=== PATIENT | male | born 1975 | race Caucasian/White ===

== ENCOUNTER → 2018-10-09 06:33 | Day surgery (SDC) | payer BC ==
[~2018-10-09 06:33] MED LIST: Acetaminophen TAB* 325 MG PO PRN; Buffered Lidocaine 0.9% SYRIN* 5 ML/SYR SYRINGE INTRADERM ONE; Bupivacaine 0.25% SDV PF* 10 ML VIAL INJ ONE; Dexamethasone IV* 4 MG/ML 1 ML (4 MG) ONE; DiMENhydriNATE IV* 50 MG/ML VIAL IV PUSH PRN; DiMENhydriNATE IV* 50 MG/ML VIAL ONE; Famotidine IV* 10 MG/ML 2 ML (20 mg) IV ONE; Famotidine IV* 10 MG/ML 2 ML (20 mg) ONE; HYDROmorphone INJ1* 1 MG/ML SYRINGE IV PRN; Ketorolac INJ* 30 MG/ML 1 ML VIAL ONE; Lidocain 1% EPI 1:100,000 * 30 ML MDV ONE; Midazolam* 1 MG/ML 5 ML VIAL (5 MG) ONE; Naloxone* 0.4 MG/ML 1 ML VIAL IV PRN; Ondansetron INJ* 2 MG/ML VIAL ONE; Propofol* 10 MG/ML 20 ML BTL ONE; ceFAZolin 2 GM PREMIX in ORs 2 GM/50 ML BAG IVPB ONE; fentaNYL* 50 MCG/ML 2 ML VIAL (100 MCG VIAL) ONE; oxyCODONE TAB* 5 MG TAB ONE
[2018-10-09] MEDS: oxyCODONE TAB* 5 MG TAB PO PRN ×2 (12:40→13:24)
[2018-10-09 13:47] VITALS: BP 130/77
--- NOTE | 2018-10-10 13:12 | OP ---
DATE OF OPERATION: 10/09/18 - SDS DATE OF : 71 SURGEON: Chele Seymour MD. SOFTWARE DEVELOPMENT COORDINATOR: LEXA Peralta. ANESTHESIOLOGIST: Dr. Baez. ANESTHESIA: General. PRE-OP DIAGNOSES: 1. Right wrist triangular fibrocartilage complex tear of the deep foveal fibers. 2. Right wrist ulnar styloid impaction syndrome. 3. Degeneration of proximal pole, right hamate. 4. Right dorsal ulnar sensory nerve neuritis. POST-OP DIAGNOSES: 1. Right wrist triangular fibrocartilage complex tear of the deep foveal fibers. 2. Right wrist ulnar styloid impaction syndrome. 3. Degeneration of proximal pole, right hamate. 4. Right dorsal ulnar sensory nerve neuritis. OPERATIVE PROCEDURES: 1. Right wrist arthroscopic triangular fibrocartilage complex tear debridement. 2. Right open triangular fibrocartilage complex repair. 3. Partial excision of right ulnar styloid. 4. Excision of the proximal pole of the right hamate. 5. Right dorsal ulnar sensory nerve neurolysis. ESTIMATED BLOOD LOSS: 2 mL. COMPLICATIONS: None. INDICATIONS: Nguyễn is 43 years old. He has had progressive right ulnar side wrist pain for years. He has been treated nonoperatively. This has been insufficient. We had talked about risks and benefits. He had wanted to proceed with surgery. I had reviewed his MRI together with Nguyễn. I told him that he had degeneration at the distal of his ulnar styloid and some tearing of the fovea fibers of the TFCC, as well as some tearing at the insertion of the ulnar collateral ligament on the ulnar aspect of the triquetrum probably due to the ulnar styloid impaction syndrome. Additionally, on the MRI, there was lot of degeneration of the proximal pole of hamate with cystic changes and lot of edema there. He was very tender on exam, so I told him, I could excise the proximal pole of the hamate as well. He understands the risks and benefits and he wanted to proceed. FINDINGS: See above and below. DESCRIPTION OF PROCEDURE: Nguyễn was seen in the preoperative holding area. The correct site, side, and procedure were identified. We came back to the operating room where the arm was prepped and draped in the usual fashion. A time-out was performed. The arm was placed in the Accumed traction tower and inline traction was applied. The arm was exsanguinated with the Esmarch and the tourniquet was inflated to 250 mmHg. A 3-4 portal was created in a standard fashion with the 11 blade followed by the mosquito followed by the blunt trocar. A camera was then introduced into the 3-4 portal. I then examined the radial-sided structures , everything looked good. I came ulnar and there was a lot of dorsal and volar synovitis. There was a little bit fraying of the TFCC. This was all debrided and excised with shaver until nothing but stable healthy margins remained. Once I completed the debridement, I removed the arthroscopic equipment from the proximal portals. Please note that the debridement was performed using a 6R portal created in standard fashion. Once I completed the debridement, I created 2 mid carpal portals one radial and one ulnar. The camera was introduced into the radial portal. The probe was introduced into the more ulnar portal. There was again a lot of synovitis. There was a bit of degeneration in proximal pole of the hamate. I used a shaver to perform synovectomy. The scapholunate and the lunotriquetral ligaments were intact. It was a type-2 lunate. There was nothing further that I could do with the arthroscopic equipments, so I went ahead and removed the arm from the traction tower and all the arthroscopic equipment was handed off. I then made a longitudinal incision over the ulnar side of the wrist that was brought back more palmarly proximally and distally. This incorporated the 6R portal. A full-thickness flap was raised off of the extensor retinaculum and the flap was raised ulnarly until the dorsal and the sensory branch was identified. I then performed a full neurolysis of the dorsal and the sensory branch all the way from where it branched off of the ulnar nerve out distally to where it bifurcated distal to the ulnar styloid. Great care was taken to preserve the nerve throughout the entirety of the neurolysis. There were couple of traversing vessels that were cauterized with a bipolar. Once that was complete, I went ahead and opened up my distal radial ulnar joint by opening up the fifth dorsal compartment and retracting the EDM tendon ulnarly. The floor of the compartment was incised longitudinally to open up the DRUJ. This was teed back transversely just proximal to the TFCC. I also performed a capsulotomy just distal to the TFCC in line with the triquetrum bone. The curette and the rongeur were used to debride all the degenerative tissue until nothing, but healthy TFCC fibers remained. There was absolutely no deep foveal fibers remaining that were significantly attached. I then came just palmar to the ECU tendon and I made a longitudinal incision through the superficial fascia there. The fat underlying the fascia was swept away to expose the ulnar collateral ligament and the tip of the ulnar styloid. I then released some of the soft tissue off the tip of the ulnar styloid and used a sagittal saw to remove about 2 to 3 mm of ulnar styloid. This was in continuity now with the my more dorsal capsulotomy and the entirety of the under-surface of the TFCC could be visualized. I used a curette to freshen up the distal ulna , in the fovea and to the ulnar styloid and prepared everything for repair of the TFCC. I then placed 3 mini-Mitek suture anchors in the fovea and then the tip of the ulna remained in the ulnar styloid. These were then sewn up into the TFCC and the TFCC was repaired back down to the distal ulnar bone very securely. I was very pleased with the apposition of the TFCC and the distal ulna, fovea and tip of the styloid. I then came more distal to where I had excised the tip of the ulnar styloid ulnarly and he had a lot of tenderness at the insertion of the ulnar collateral ligament on the ulnar aspect of the triquetrum and so I released a bit of this and removed any degenerative tissue. I then placed 1 additional Mini-Mitek suture anchor into the triquetrum and used this to sew the ulnar collateral ligament back to the triquetrum. This was augmented with a couple of 3-0 Ethibond [id number] sutures in the adjacent tissue until I had a very nice repair there as well. Lastly, I raised my capsular flap up to expose the proximal pole of the hamate. Great care was taken to preserve the dorsal lunotriquetral ligament. I then used my sagittal saw to excise just the proximal most 3 or so millimeters of the proximal pole of the hamate. This came out very cleanly. After it was completed, I checked the stability. Everything was looking very nice. There was absolutely no instability. Vast majority of the capital hamate ligament remained. I went ahead and then irrigated out all my wounds. My capsulotomy was closed imbricating some of the dorsal tissue until it closed very tightly. This was all performed with 3-0 Ethibond suture. Care was taken not to sew in the extensor tendons. Extensor retinaculum was closed together in one whole flap where I had made the capsulotomy of the DRUJ. Care was taken not to sew in the extensor tendons. The EDM tendon was left transposed. At this point, with the capsule and retinaculum closed and the ulnar-sided fascia closed as well. I went ahead and irrigated out my wounds and neurolysis was looking very nice. So, I went ahead and left the skin flap fall back into place and it was closed with 4-0 Monocryl suture and Steri-Strips. All my portal sites for the arthroscopy were closed with 4-0 Monocryl suture, 0.25% Marcaine was infiltrated all about the operative area. The arm was placed in a sugar-tong splint in neutral rotation. The tourniquet was deflated and the hand pinked up immediately. Total tourniquet time was little over 140 minutes. He was then taken to the recovery room in stable condition. [id number]/CPS #: [id number] RANI
== END | disposition home or self-care (01) ==
LOC: OR 06:33
PROVIDERS: ATTEND Orthopaedic Surgery Hand Surgery
DX: M24.831 Other specific joint derangements of right wrist, not elsewhere classified (principal); E11.9 Type 2 diabetes mellitus without complications; Z79.84 Long term (current) use of oral hypoglycemic drugs; E78.5 Hyperlipidemia, unspecified; Z87.891 Personal history of nicotine dependence
CPT/HCPCS: A9270-GY; C1713; J0690; J1100; J1240; J1885; J2250; J2405; J2704; J3010; J3490